=== PATIENT | female | born 1955 | race Caucasian/White ===

== ENCOUNTER → 2021-02-12 | Day surgery (SDC) | payer MEDICARE, MEDICAID ==
[~2021-02-12] VITALS: Ht 157.5 cm; Wt 78.0 kg
[~2021-02-12] MED LIST: ACETYLCHOLINE CHLORIDE INTRAOCULAR SOLUTION 1:100 ELECTROLYTE DILUENT IO ONE; ALBU90AE IH; ATEN50TA PO; ATOR20TA65 PO; BALANCED SALT IRRIG SOLN 15ML ONE; BALANCED SALT IRRIG SOLN COMB1 500ML OP SCH; BENZ0.5T43 PO; BUPIVACAINE HCL/PF 0.75% (7.5MG/ML) 10ML ONE; FENTANYL CITRATE/PF 50MCG/ML 2ML VIAL ONE; GABA-529 PO; GENTAMICIN SULF 40MG/ML 2ML VIAL ONE; HYALURONATE SODIUM 10 MG/ML 0.55ML SYRINGE IO ONE; HYDR10TA34 PO; LACT10SO6 MT; LEVO150T8 PO; LIDOCAINE HCL 2%/EPINEPHRINE 1:100,000 20 ML VIAL INFIL ONE; LORA-249 PO; METHYLPREDNISOLONE SOD SUCC 40 MG/ML VIAL ONE; METOCLOPRAMIDE HCL 10MG/2ML VIAL ONE; MIDAZOLAM HCL 2 MG/2 ML VIAL ONE; NAPHADR EACHEYE; ONDANSETRON HCL 4MG/2ML INJ ONE; PANT40TA51 PO; PARO40TA PO; PHENYLEPHRINE 2.5% OPHTH 15 DROP/ML BOTTLE RIGHTEYE ONE; PHENYLEPHRINE HCL 2.5% OPHTH DROPS 2ML ONE; PROPOFOL 200MG/20ML VIAL IV ONE; RISP2TAB85 PO; SUCCINYLCHOLINE CHLORIDE 200MG/10ML IV ONE; TETRACAINE 0.5% OPHTH DROPS 4ML ONE; TOBRAMYCIN/DEXAMETH 0.1/0.3% OPHTH SUSP 2.5ML ONE; TROPICAMIDE 1% OPHTH DROPS 15ML ONE; TROPICAMIDE 1% OPHTH DROPS 15ML RIGHTEYE ONE
== END | disposition home or self-care (01) ==
LOC: OR 06:59
PROVIDERS: ATTEND Ophthalmology
DX: E11.36 Type 2 diabetes mellitus with diabetic cataract (principal); H25.89 Other age-related cataract; I10 Essential (primary) hypertension; K21.9 Gastro-esophageal reflux disease without esophagitis; E03.9 Hypothyroidism, unspecified; E78.5 Hyperlipidemia, unspecified; F32.9 Major depressive disorder, single episode, unspecified; F41.9 Anxiety disorder, unspecified; I48.91 Unspecified atrial fibrillation; J44.9 Chronic obstructive pulmonary disease, unspecified; Z79.01 Long term (current) use of anticoagulants; Z79.4 Long term (current) use of insulin; Z79.899 Other long term (current) drug therapy; Z98.890 Other specified postprocedural states
CPT/HCPCS: 66984; 67005; 82962; J0330; J1580; J2250; J2405; J2704; J2765; J2920; J3010; J3490; V2630; V2632

== ENCOUNTER 2021-04-02 06:59 | Day surgery (SDC) | payer MEDICARE, MEDICAID ==
[~2021-04-02] VITALS: Ht 167.6 cm; Wt 75.3 kg
[~2021-04-02 06:59] MED LIST changes: -ACETYLCHOLINE CHLORIDE INTRAOCULAR SOLUTION 1:100 ELECTROLYTE DILUENT IO ONE; -BALANCED SALT IRRIG SOLN 15ML ONE; -BALANCED SALT IRRIG SOLN COMB1 500ML OP SCH; -BUPIVACAINE HCL/PF 0.75% (7.5MG/ML) 10ML ONE; -FENTANYL CITRATE/PF 50MCG/ML 2ML VIAL ONE; -GENTAMICIN SULF 40MG/ML 2ML VIAL ONE; -HYALURONATE SODIUM 10 MG/ML 0.55ML SYRINGE IO ONE; -LIDOCAINE HCL 2%/EPINEPHRINE 1:100,000 20 ML VIAL INFIL ONE; -METHYLPREDNISOLONE SOD SUCC 40 MG/ML VIAL ONE; -METOCLOPRAMIDE HCL 10MG/2ML VIAL ONE; -MIDAZOLAM HCL 2 MG/2 ML VIAL ONE; -ONDANSETRON HCL 4MG/2ML INJ ONE; -PHENYLEPHRINE 2.5% OPHTH 15 DROP/ML BOTTLE RIGHTEYE ONE; -PHENYLEPHRINE HCL 2.5% OPHTH DROPS 2ML ONE; -PROPOFOL 200MG/20ML VIAL IV ONE; -SUCCINYLCHOLINE CHLORIDE 200MG/10ML IV ONE; -TETRACAINE 0.5% OPHTH DROPS 4ML ONE; -TOBRAMYCIN/DEXAMETH 0.1/0.3% OPHTH SUSP 2.5ML ONE; -TROPICAMIDE 1% OPHTH DROPS 15ML ONE; -TROPICAMIDE 1% OPHTH DROPS 15ML RIGHTEYE ONE
[2021-04-02] MEDS ORDERED: PHENYLEPHRINE 2.5% OPHTH 15 DROP/ML BOTTLE LEFTEYE NR (08:00)
[2021-04-02] MEDS ORDERED: TROPICAMIDE 1% OPHTH DROPS 15ML LEFTEYE NR (08:00)
[2021-04-02] MEDS ORDERED: HYALURONATE SODIUM 10 MG/ML 0.55ML SYRINGE IO ONE (08:27)
[2021-04-02] MEDS ORDERED: BALANCED SALT IRRIG SOLN COMB1 500ML OP NR (08:30)
[2021-04-02] MEDS ORDERED: GENTAMICIN SULF 40MG/ML 2ML VIAL ONE ×2 (08:57→08:58)
[2021-04-02] MEDS ORDERED: PHENYLEPHRINE HCL 2.5% OPHTH DROPS 2ML ONE ×2 (08:57→08:58)
[2021-04-02] MEDS ORDERED: BUPIVACAINE HCL/PF 0.75% (7.5MG/ML) 10ML ONE ×2 (08:57→08:58)
[2021-04-02] MEDS ORDERED: LIDOCAINE HCL 2%/EPINEPHRINE 1:100,000 20 ML VIAL INFIL ONE ×2 (08:57→08:58)
[2021-04-02] MEDS ORDERED: BALANCED SALT IRRIG SOLN 15ML ONE ×2 (08:57→08:58)
[2021-04-02] MEDS ORDERED: TETRACAINE 0.5% OPHTH DROPS 4ML ONE ×2 (08:57→08:58)
[2021-04-02] MEDS ORDERED: ACETYLCHOLINE CHLORIDE INTRAOCULAR SOLUTION 1:100 ELECTROLYTE DILUENT IO ONE ×2 (08:57→08:58)
[2021-04-02] MEDS ORDERED: TROPICAMIDE 1% OPHTH DROPS 15ML ONE (08:57)
[2021-04-02] MEDS ORDERED: CYCLOPENTOLATE HCL 1% OPHTH DROPS 2ML ONE (08:58)
[2021-04-02] MEDS ORDERED: TOBRAMYCIN 0.3% OPHTH DROPS 5ML OP SCH (09:00)
[2021-04-02] MEDS ORDERED: PROPOFOL 200MG/20ML VIAL IV ONE (09:17)
[2021-04-02] MEDS ORDERED: MIDAZOLAM HCL 2 MG/2 ML VIAL ONE (09:19)
[2021-04-02] MEDS ORDERED: EPHEDRINE SULFATE 50MG/ML VIAL ONE (10:10)
[2021-04-02] MEDS ORDERED: LIDOCAINE HCL 1% 10 MG/ML 10ML VIAL ONE (10:11)
[2021-04-02] MEDS ORDERED: METHYLPREDNISOLONE SOD SUCC 40 MG/ML VIAL ONE (10:41)
[2021-04-02] MEDS ORDERED: ACETAMINOPHEN WITH CODEINE 300/30MG TABLET ONE (11:41)
[2021-04-02] MEDS ORDERED: ACETAMINOPHEN WITH CODEINE 300/30MG TABLET PO ONE (11:45)
[2021-04-02] MEDS ORDERED: ROCURONIUM BROMIDE 10MG/ML VIAL 5ML IV ONE (12:35)
== END 2021-04-02 14:30 | disposition home or self-care (01) ==
LOC: OR 06:59
PROVIDERS: ATTEND Ophthalmology
DX: E11.36 Type 2 diabetes mellitus with diabetic cataract (principal); H25.89 Other age-related cataract; E03.9 Hypothyroidism, unspecified; F41.9 Anxiety disorder, unspecified; F32.9 Major depressive disorder, single episode, unspecified; E78.00 Pure hypercholesterolemia, unspecified; J44.9 Chronic obstructive pulmonary disease, unspecified; K21.9 Gastro-esophageal reflux disease without esophagitis; I48.91 Unspecified atrial fibrillation; I10 Essential (primary) hypertension; Z79.01 Long term (current) use of anticoagulants; Z79.899 Other long term (current) drug therapy; Z98.890 Other specified postprocedural states
CPT/HCPCS: 66984; 67005; 82962; J1580; J2250; J2704; J2920; J3490; V2630